=== PATIENT | female | born 1980 | race Caucasian/White ===

== ENCOUNTER 2016-11-03 15:50 | Emergency (ER) | payer OTHER ==
--- NOTE | 2016-11-03 17:54 | ED ---
General Adult HPI - General Chief complaint: ENT Stated complaint: feels like food is stuck in throat Time Seen by Provider: 11/03/16 17:43 Source: patient, RN notes reviewed Mode of arrival: ambulatory Limitations: no limitations - History of Present Illness Initial comments: Patient 35-year-old female who presents emergency room today with chief complaint of indigestion. She does admit that over the last month she's been having increased symptoms. She states last few days seems worse. She states she's tried [id number] omeprazole. She states she states is different medicines to help. She states feels like there is stuck in her esophagus. States feels like she has difficult time swallowing at times with moving up and down. Patient states that she constantly needs to be drinking something to help with the symptoms. Patient denies any other complaints or symptoms currently. She denies any difficulty swallowing or breathing. Patient denies any recent fever, chills, shortness of breath, chest pain, back pain, abdominal pain, nausea or vomiting, numbness or tingling, dysuria or hematuria, constipation or diarrhea, headaches or visual changes, or any other complaints. - Related Data Home Medications Medication Instructions Recorded Confirmed ALPRAZolam [Xanax] 2 mg PO TID 07/27/15 08/13/15 HYDROcodone/APAP 10-325MG [[place] 1 tab PO DIRECTED PRN 08/06/15 08/13/15 10-325] Gabapentin 800 mg PO QID 11/03/16 11/03/16 Previous Rx's Medication Instructions Recorded Sucralfate [Carafate] 1 gm PO ACHS #20 tablet 11/03/16 Allergies Allergy/AdvReac Type Severity Reaction Status Date / Time Sulfa (Sulfonamide Allergy Anaphylaxis Verified 11/03/16 18:27 Antibiotics) codeine AdvReac Nausea & Verified 11/03/16 18:27 Vomiting tramadol AdvReac Nausea & Verified 11/03/16 18:27 Vomiting Review of Systems ROS Statement: Those systems with pertinent positive or pertinent negative responses have been documented in the HPI. ROS Other: All systems not noted in ROS Statement are negative. Past Medical History Past Medical History: No Reported History Additional Past Medical History / Comment(s): chronic back pain History of Any Multi-Drug Resistant Organisms: None Reported Past Surgical History: Section, Orthopedic Surgery Additional Past Surgical History / Comment(s): OVARIAN CYST SURGERY, ARTHROSCOPIC SURGERY OF THE LEFT KNEE X3 Past Psychological History: No Psychological Hx Reported Smoking Status: Current every day smoker Past Alcohol Use History: None Reported Past Drug Use History: None Reported General Exam - General Exam Comments Initial Comments: General: The patient is awake and alert, in no distress, and does not appear acutely ill. Eye: Pupils are equal, round and reactive to light, extra-ocular movements are intact. No nystagmus. There is normal conjunctiva bilaterally. No signs of icterus. Ears, nose, mouth and throat: There are moist mucous membranes and no oral lesions. Neck: The neck is supple, there is no tenderness or JVD. Cardiovascular: There is a regular rate and rhythm. No murmur, rub or gallop is appreciated. Respiratory: Lungs are clear to auscultation, respirations are non-labored, breath sounds are equal. No wheezes, stridor, rales, or rhonchi. Gastrointestinal: Soft, non-distended, non-tender abdomen without masses or organomegaly noted. There is no rebound or guarding present. No CVA tenderness. Bowel sounds are unremarkable. Musculoskeletal: Normal ROM, no tenderness. Strength 5/5. Sensation intact. Pulses equal bilaterally 2+. Neurological: A&O x 3. CN II-XII intact, There are no obvious motor or sensory deficits. Coordination appears grossly intact. Speech is normal. Skin: Skin is warm and dry and no rashes or lesions are noted. Psychiatric: Cooperative, appropriate mood & affect, normal judgment. Limitations: no limitations Course Vital Signs 11/03/16 15:55 Temperature 97.6 F Pulse Rate 89 Respiratory 16 Rate Blood Pressure 150/76 O2 Sat by Pulse 100 Oximetry Medical Decision Making - Medical Decision Making Patient reexamined at this time shows no signs of distress. Has been able to keep down by mouth fluids here in the emergency room. She admits that she had cocktail did not help much with her symptoms. Patient's x-ray reviewed and are unremarkable. Patient is advised follow-up with GI for further evaluation be started on Carafate. Patient requesting prescription refills for her [place] and Xanax. Advised that she needs follow-up family doctor for these. Advised return if there is any difficulty swallowing or any other concerns. Patient states understanding and agreement. Disposition Clinical Impression: Dyspepsia Disposition: HOME SELF-CARE Condition: Good Instructions: Indigestion (ED) Additional Instructions: Please follow-up GI doctor over the next 2 days. Please use medication as described. Please follow-up family doctor for prescriptions of [place] and Xanax as discussed. Please return to emergency room for any other concerns. Prescriptions: Sucralfate [Carafate] 1 gm PO ACHS #20 tablet Referrals: None,Stated [Primary Care Provider] - 1-2 days Ja Alejandre MD [STAFF PHYSICIAN] - 1-2 days Time of Disposition: 18:32
--- NOTE | 2016-11-03 18:05 | XR ---
EXAMINATION TYPE: XR chest 2V DATE OF EXAM ORDERED: 11/03/2016 6:00 PM HISTORY: Dyspepsia. REFERENCE: None. FINDINGS: The lungs are clear. Pleural spaces are clear. Heart size is normal. IMPRESSION: NORMAL CHEST.
[2016-11-03] MEDS ORDERED: MAG HYDROX/AL HYDROX/SIMETH 30 ML, HYOSCYAMINE ELIXIR 10 ML, CIMETIDINE HCL 300 MG, LID... PO STA ×4 (18:09)
[2016-11-03 18:55] VITALS: BP 123/59; PULSE 76; RESP 18; TEMP 98
== END 2016-11-03 18:55 | disposition home or self-care (01) ==
LOC: EC 15:50
DX: R10.13 Epigastric pain (principal); F17.200 Nicotine dependence, unspecified, uncomplicated; Z79.899 Other long term (current) drug therapy; Z88.2 Allergy status to sulfonamides; Z88.5 Allergy status to narcotic agent; Z88.6 Allergy status to analgesic agent
CPT/HCPCS: 71020; 99283

== ENCOUNTER 2017-05-23 13:45 | Emergency (ER) | payer OTHER ==
[2017-05-23 14:03] VITALS: BP 141/74; PULSE 74; RESP 18; TEMP 97.9
--- NOTE | 2017-05-23 14:21 | ED ---
General Adult HPI - General Chief complaint: Dental/Oral Stated complaint: Dental Pain Time Seen by Provider: 05/23/17 13:58 Source: patient, RN notes reviewed Mode of arrival: ambulatory Limitations: no limitations - History of Present Illness Initial comments: Patient 36-year-old female who presents emergency room today with chief complaint of increased dental pain is 8 over both left upper and lower sides. Does not that she is on antibiotics of amoxicillin for the last 6 days that there is an abscess or drainage. Patient denies symptoms. States she does have a follow-up with the dentist in 4 days. Patient denies any recent fever, chills, shortness of breath, chest pain, back pain, abdominal pain, nausea or vomiting, numbness or tingling, dysuria or hematuria, constipation or diarrhea, headaches or visual changes, or any other complaints. - Related Data Home Medications Medication Instructions Recorded Confirmed ALPRAZolam [Xanax] 2 mg PO TID 07/27/15 11/03/16 HYDROcodone/APAP 10-325MG [[place] 1 tab PO QID 08/06/15 11/03/16 10-325] Gabapentin 800 mg PO QID 11/03/16 11/03/16 Previous Rx's Medication Instructions Recorded Sucralfate [Carafate] 1 gm PO ACHS #20 tablet 11/03/16 Clindamycin HCl [Cleocin] 300 mg PO Q6HR 10 Days cap 05/23/17 Hydrocodone/Acetaminophen [[place] 1 each PO Q6HR PRN #10 tab 05/23/17 5-325] Allergies Allergy/AdvReac Type Severity Reaction Status Date / Time Sulfa (Sulfonamide Allergy Anaphylaxis Verified 05/23/17 13:59 Antibiotics) codeine AdvReac Nausea & Verified 05/23/17 13:59 Vomiting tramadol AdvReac Nausea & Verified 05/23/17 13:59 Vomiting Review of Systems ROS Statement: Those systems with pertinent positive or pertinent negative responses have been documented in the HPI. ROS Other: All systems not noted in ROS Statement are negative. Past Medical History Past Medical History: No Reported History Additional Past Medical History / Comment(s): chronic back pain History of Any Multi-Drug Resistant Organisms: None Reported Past Surgical History: Section, Orthopedic Surgery Additional Past Surgical History / Comment(s): OVARIAN CYST SURGERY, ARTHROSCOPIC SURGERY OF THE LEFT KNEE X3 Past Psychological History: Anxiety Smoking Status: Current every day smoker Past Alcohol Use History: Rare Past Drug Use History: None Reported General Exam - General Exam Comments Initial Comments: General: The patient is awake and alert, in no distress, and does not appear acutely ill. Eye: Pupils are equal, round and reactive to light, extra-ocular movements are intact. No nystagmus. There is normal conjunctiva bilaterally. No signs of icterus. Ears, nose, mouth and throat: There are moist mucous membranes and no oral lesions. Patient does have poor dental hygiene. Does have an abscess above tooth #14. Abscesses currently draining. Does have pain over the gumline of tooth #1918 as well. No sign of abscess in this area. Neck: The neck is supple, there is no tenderness or JVD. Cardiovascular: There is a regular rate and rhythm. No murmur, rub or gallop is appreciated. Respiratory: Lungs are clear to auscultation, respirations are non-labored, breath sounds are equal. No wheezes, stridor, rales, or rhonchi. Musculoskeletal: Normal ROM, no tenderness. Strength 5/5. Sensation intact. Pulses equal bilaterally 2+. Neurological: A&O x 3. CN II-XII intact, There are no obvious motor or sensory deficits. Coordination appears grossly intact. Speech is normal. Skin: Skin is warm and dry and no rashes or lesions are noted. Psychiatric: Cooperative, appropriate mood & affect, normal judgment. Limitations: no limitations Course Vital Signs 05/23/17 13:59 Temperature 97.9 F Pulse Rate 74 Respiratory 18 Rate Blood Pressure 141/74 O2 Sat by Pulse 98 Oximetry Medical Decision Making - Medical Decision Making Patient advised used teabag to the gumline for abscess. Advised salt water gargles or blistering. Will be also placed on any other antibiotic clindamycin to cover for infection. Given short prescription medication. Disposition Clinical Impression: Dental abscess Disposition: HOME SELF-CARE Condition: Good Instructions: Dental Abscess (ED) Additional Instructions: Please use medication as discussed. Please follow-up with dentist/family doctor in the next 2 days of symptoms have not improved. Please return to emergency room if the symptoms increase or worsen or for any other concerns. Prescriptions: Clindamycin HCl [Cleocin] 300 mg PO Q6HR 10 Days cap Hydrocodone/Acetaminophen [[place] 5-325] 1 each PO Q6HR PRN #10 tab PRN Reason: Pain Referrals: None,Stated [Primary Care Provider] - 1-2 days Time of Disposition: 14:20
== END 2017-05-23 14:37 | disposition home or self-care (01) ==
LOC: EC 13:45
DX: K04.7 Periapical abscess without sinus (principal); F41.9 Anxiety disorder, unspecified; F17.200 Nicotine dependence, unspecified, uncomplicated; Z88.2 Allergy status to sulfonamides; Z88.5 Allergy status to narcotic agent; Z88.6 Allergy status to analgesic agent; Z79.891 Long term (current) use of opiate analgesic; Z79.899 Other long term (current) drug therapy
CPT/HCPCS: 99282

== ENCOUNTER → 2019-04-09 | Outpatient (CLI) | payer BC, OTHER ==
--- NOTE | 2019-04-09 10:06 | MM ---
Reason for exam: screening (asymptomatic). Baseline mammogram. History: Took hormonal contraceptives beginning at age 15. Physical Findings: Nurse did not find any significant physical abnormalities on exam. MG 3D Screening Mammo W/Cad Bilateral CC and MLO view(s) were taken. The breast tissue is heterogeneously dense. This may lower the sensitivity of mammography. There are multiple round oval circumscribed bilateral masses, likely cyst however will be confirmed with ultrasound. These results were verbally communicated with the patient and result sheet given to the patient on 04/09/19. ASSESSMENT: Incomplete: need additional imaging evaluation, BI-RAD 0 RECOMMENDATION: Ultrasound of both breasts. (right whole breast, left upper outer quadrant)
--- NOTE | 2019-04-09 10:09 | USB ---
Reason for exam: additional evaluation requested from abnormal screening. History: Took hormonal contraceptives beginning at age 15. Physical Findings: Breast exam preformed at baseline screening. US Breast Workup Limited SARINA Right complete breast ultrasound includes all four quadrants, the retroareolar region and axilla. Finding demonstrates a 0.4 x 0.2 x 0.4cm cystic lesion at 4 o'clock, a 0.4 x 0.4 x 0.6cm cystic cluster at 7 o'clock and a 0.6 x 0.3 x 0.5cm cystic lesion at 8 o'clock. Correlates with mammogram. Left limited breast ultrasound including focal area of concern, retroareolar and axilla demonstrates a 0.5 x 0.4 x 0.4cm lesion too small to characterize at 12 o'clock, likely deep cyst in dense tissue, 6 month follow up recommended, a 0.5 x 0.5 x 0.5cm cystic lesion at 2 o'clock and a 0.5 x 0.3 x 0.5cm cystic cluster at 2 o'clock. These results were verbally communicated with the patient and result sheet given to the patient on 04/09/19. ASSESSMENT: Probably benign, BI-RAD 3 RECOMMENDATION: Ultrasound of the left breast in 6 months. (at 12 o'clock)
== END ==
LOC: RADMAMWWP 07:55
PROVIDERS: ATTEND Obstetrics & Gynecology
DX: Z12.31 Encounter for screening mammogram for malignant neoplasm of breast (principal); R92.8 Other abnormal and inconclusive findings on diagnostic imaging of breast
CPT/HCPCS: 77063; 77067

== ENCOUNTER → 2019-10-12 | Outpatient (CLI) | payer OTHER ==
--- NOTE | 2019-10-12 11:50 | USB ---
Reason for exam: follow-up at short interval from prior study. History: Took hormonal contraceptives beginning at age 15. Physical Findings: Nurse Summary: Patient complains of intermittent pain breast lumps bilateral more on left prior to menstrual cycles, right 9 o'clock 1cm lump, left 12 o'clock/2 o'clock 1cm lumps (nurse mj). US Breast Limited BILAT Right limited breast ultrasound including focal area of concern, retroareolar and axilla demonstrates a 0.8 x 0.6 x 0.4cm oval, cystic lesion at 9 o'clock prior at 8 o'clock measured 0.6 x 0.3 x 0.5cm, a 0.6 x 0.6 x 0.4cm oval, cystic lesion at 9 o'clock BB and a 1.4 x 2.0 x 0.5cm lymph node at the axilla. Left limited breast ultrasound including focal area of concern, retroareolar and axilla demonstrates a 0.4 x 0.3 x 0.2cm oval, complicated, cystic lesion at 2 o'clock, a 0.4 x 0.6 x 0.2cm oval, cystic lesion at 2 o'clock, a 0.3 x 0.4 x 0.4cm oval, taller than wide, cystic lesion at 2 o'clock and a 2.9 x 1.5 x 0.5cm left axilla node. These results were verbally communicated with the patient and result sheet given to the patient on 10/12/19. ASSESSMENT: Benign, BI-RAD 2 RECOMMENDATION: Return to routine screening mammogram schedule for both breasts. Back on schedule for April 2020.
== END | disposition home or self-care (01) ==
LOC: RADUSWWP 09:56
PROVIDERS: ATTEND Internal Medicine
DX: R92.8 Other abnormal and inconclusive findings on diagnostic imaging of breast (principal)

== ENCOUNTER → 2020-06-07 | Outpatient (CLI) | payer OTHER ==
--- NOTE | 2020-06-08 11:15 | MM ---
Reason for exam: screening (asymptomatic). Last mammogram was performed 1 year and 2 months ago. History: Took hormonal contraceptives beginning at age 15. Physical Findings: A clinical breast exam by your physician is recommended on an annual basis and results should be correlated with mammographic findings. MG 3D Screening Mammo W/Cad Bilateral CC and MLO view(s) were taken. Prior study comparison: April 09, 2019, bilateral MG 3d screening mammo w/cad. The breast tissue is heterogeneously dense. This may lower the sensitivity of mammography. No significant changes when compared with prior studies. ASSESSMENT: Benign, BI-RAD 2 RECOMMENDATION: Routine screening mammogram of both breasts in 1 year.
== END | disposition home or self-care (01) ==
LOC: RADMAMWWP 07:20
PROVIDERS: ATTEND Obstetrics & Gynecology
DX: Z12.31 Encounter for screening mammogram for malignant neoplasm of breast (principal)
CPT/HCPCS: 77063; 77067

== ENCOUNTER 2021-02-19 09:32 | Emergency (ER) | payer BC, OTHER ==
[2021-02-19 09:40] VITALS: BP 122/75; PULSE 72; RESP 18; TEMP 98.3
--- NOTE | 2021-02-19 10:33 | XR ---
EXAMINATION TYPE: XR elbow complete RT DATE OF EXAM: 02/19/2021 COMPARISON: None HISTORY: Pain and swelling TECHNIQUE: Three-view right elbow FINDINGS: Radius aligns normally with the humerus. No acute fractures or dislocations are evident. An terior fat pad is normal. No elevation of posterior fat pad is evident. Overlying soft tissues appear normal. Follow up exams can be performed 7-10 days for continued pain IMPRESSION: 1. Normal three-view right elbow.
--- NOTE | 2021-02-19 10:43 | ED ---
Extremity Problem HPI - General Chief complaint: Extremity Problem,Nontraumatic Stated complaint: Rt Elbow Swelling Time Seen by Provider: 02/19/21 09:59 Source: patient, RN notes reviewed Mode of arrival: ambulatory Limitations: no limitations - History of Present Illness Initial comments: This a 40-year-old female presents with sore to when her right elbow redness. Patient states that she had an injection of cortisone and lidocaine 56 days ago. Patient was seen by the second orthopedic physician who did this. Patient is performed at [facility]. She notices itchy last 24 hours noticed lower redness that worsened today with some swelling she has no pain with range of motion of her right elbow she states that she did not plan to the area she has been scratching that she is unsure if she may have been bit by a mosquito. Patient denies fevers chills no paresthesias no other complaints. - Related Data Home Medications Medication Instructions Recorded Confirmed ALPRAZolam [Xanax] 2 mg PO TID 07/27/15 11/03/16 HYDROcodone/APAP 10-325MG [[place] 1 tab PO QID 08/06/15 11/03/16 10-325] Gabapentin 800 mg PO QID 11/03/16 11/03/16 Previous Rx's Medication Instructions Recorded Sucralfate [Carafate] 1 gm PO ACHS #20 tablet 11/03/16 Hydrocodone/Acetaminophen [[place] 1 each PO Q6HR PRN #10 tab 05/23/17 5-325] clindamycin HCL [Cleocin] 300 mg PO Q6HR 10 Days cap 05/23/17 Cephalexin [Keflex] 500 mg PO Q6HR #40 cap 02/19/21 Allergies Allergy/AdvReac Type Severity Reaction Status Date / Time Sulfa (Sulfonamide Allergy Anaphylaxis Verified 02/19/21 09:40 Antibiotics) codeine AdvReac Nausea & Verified 02/19/21 09:40 Vomiting tramadol AdvReac Nausea & Verified 02/19/21 09:40 Vomiting Review of Systems ROS Statement: Those systems with pertinent positive or pertinent negative responses have been documented in the HPI. ROS Other: All systems not noted in ROS Statement are negative. Past Medical History Past Medical History: No Reported History Additional Past Medical History / Comment(s): chronic back pain History of Any Multi-Drug Resistant Organisms: None Reported Past Surgical History: Section, Orthopedic Surgery Additional Past Surgical History / Comment(s): OVARIAN CYST SURGERY, ARTHROSCOPIC SURGERY OF THE LEFT KNEE X3 Past Psychological History: Anxiety Smoking Status: Never smoker Past Alcohol Use History: Rare Past Drug Use History: None Reported General Exam Limitations: no limitations General appearance: alert, in no apparent distress Head exam: Present: atraumatic, normocephalic, normal inspection Neck exam: Present: normal inspection, full ROM. Absent: tenderness, meningismus, lymphadenopathy Respiratory exam: Present: normal lung sounds bilaterally. Absent: respiratory distress, wheezes, rales, rhonchi, stridor Cardiovascular Exam: Present: regular rate, normal rhythm, normal heart sounds. Absent: systolic murmur, diastolic murmur, rubs, gallop, clicks Extremities exam: Present: other (Right elbow there is full range of motion, no pain with range of motion passive or active, nontender there is mild erythema which is blotchy in nature, she does have some excoriations. Patient's neurovascular intact.) Course Vital Signs 02/19/21 09:37 Temperature 98.3 F Pulse Rate 72 Respiratory 18 Rate Blood Pressure 122/75 O2 Sat by Pulse 100 Oximetry Medical Decision Making - Medical Decision Making X-rays unremarkable. Patient has no pain with range of motion there is no concern for septic joint at this time. Patient denies she was started on antibiotics for possible cellulitis. Patient advised to take antihistamines Juan from scratching the area she'll follow-up with orthopedics tomorrow return for any worsening changes symptoms. Disposition Clinical Impression: Right arm cellulitis Disposition: HOME SELF-CARE Condition: Stable Instructions (If sedation given, give patient instructions): Cellulitis (ED) Additional Instructions: Please return to the Emergency Department if symptoms worsen or any other concerns. Prescriptions: Cephalexin [Keflex] 500 mg PO Q6HR #40 cap Is patient prescribed a controlled substance at d/c from ED?: No Referrals: Dwight Albarran DO [Primary Care Provider] - 1-2 days Time of Disposition: 10:41
== END 2021-02-19 10:50 | disposition home or self-care (01) ==
LOC: EC 09:32
DX: L03.113 Cellulitis of right upper limb (principal); F41.9 Anxiety disorder, unspecified; G89.29 Other chronic pain; Z79.891 Long term (current) use of opiate analgesic; Z79.899 Other long term (current) drug therapy; Z88.2 Allergy status to sulfonamides; Z88.5 Allergy status to narcotic agent; Z88.8 Allergy status to other drugs, medicaments and biological substances
CPT/HCPCS: 99283

== ENCOUNTER → 2021-08-30 | Outpatient (CLI) | payer OTHER ==
--- NOTE | 2021-09-01 09:25 | MM ---
Reason for exam: screening (asymptomatic). Last mammogram was performed 1 year and 3 months ago. History: Took hormonal contraceptives beginning at age 15. Physical Findings: A clinical breast exam by your physician is recommended on an annual basis and results should be correlated with mammographic findings. MG 3D Screening Mammo W/Cad Bilateral CC and MLO view(s) were taken. Prior study comparison: June 07, 2020, bilateral MG 3d screening mammo w/cad. April 09, 2019, bilateral MG 3d screening mammo w/cad. Focal asymmetry right CC view. This finding is changed when compared with previous exams. ASSESSMENT: Incomplete: need additional imaging evaluation, BI-RAD 0 RECOMMENDATION: Special view mammogram and ultrasound of the right breast. Manage on a clinical basis with regard to right side pain, consider ultrasound for pain. [facility] will attempt to contact patient to return for supplemental views and ultrasound.
== END | disposition home or self-care (01) ==
LOC: RADMAMWWP 16:12
PROVIDERS: ATTEND Obstetrics & Gynecology
DX: Z12.31 Encounter for screening mammogram for malignant neoplasm of breast (principal)
CPT/HCPCS: 77063; 77067

== ENCOUNTER → 2021-09-05 | Outpatient (CLI) | payer OTHER ==
--- NOTE | 2021-09-05 09:09 | MM ---
Reason for exam: additional evaluation requested from abnormal screening. Last mammogram was performed less than 1 month ago. History: Took hormonal contraceptives beginning at age 15. Physical Findings: Nurse did not find any significant physical abnormalities on exam. MG 3D Work Up W/Cad RT Spot compression CC and LM view(s) were taken of the right breast. Prior study comparison: August 30, 2021, bilateral MG 3d screening mammo w/cad. June 07, 2020, bilateral MG 3d screening mammo w/cad. The breast tissue is heterogeneously dense. This may lower the sensitivity of mammography. There is no discrete abnormality. These results were verbally communicated with the patient and result sheet given to the patient on 09/05/21. ASSESSMENT: Incomplete: need additional imaging evaluation, BI-RAD 0 RECOMMENDATION: Ultrasound of the right breast. (focal pain and background dense tissue) MTDD
--- NOTE | 2021-09-05 09:11 | USB ---
Reason for exam: additional evaluation requested from abnormal screening. History: Took hormonal contraceptives beginning at age 15. US Breast Workup Limited RT Right limited breast ultrasound including focal area of concern, retroareolar and axilla demonstrates no cystic or solid lesion seen. These results were verbally communicated with the patient and result sheet given to the patient on 09/05/21. ASSESSMENT: Negative, BI-RAD 1 RECOMMENDATION: Clinical management of both breasts. Manage on a clinical basis with regard to right breast pain.
== END | disposition home or self-care (01) ==
LOC: RADMAMWWP 07:39
PROVIDERS: ATTEND Obstetrics & Gynecology
DX: R92.8 Other abnormal and inconclusive findings on diagnostic imaging of breast (principal)
CPT/HCPCS: 77065; 76642; G0279; 77061

== ENCOUNTER → 2021-11-24 | Outpatient (CLI) | payer BC, OTHER ==
[2021-11-24 15:13] VITALS: BP 108/65; PULSE 64; RESP 16; TEMP 98
--- NOTE | 2021-11-24 15:42 | P.GSHP ---
History of Present Illness H&P Date: 11/24/21 Chief Complaint: lump right breast Natalia is a 40 year old white female seen in consultatin for Dr. Albarran regarding a painful nodularity in her right breast. She had a bilateral mammogram on 08-30-21 which showed some asymmetry in the right breast leading on 09-05-21 to a right diagnostic mammogram and ultrasound. These did not show any lesions of concern in the breast. This was Benign BIRAD 1. The nodularity has been present for several years. She had an ablation done two years, but she still notices the pain in the lateral aspect of her breast. She has not had any procedures done on her breast. No history of any trauma or infection of the breast. Caffeine: coffee 1/day nicotine: none chocolate: rare BCP: none; not since 2007 Family History: paternal grandmother: stomach cancer paternal grandfather: prostate cancer maternal grandmother: cancer? type Hormonal History: menarche: 11 , breast fed: no, age at : 22 ablation at 1919 at about 38 hormones: none Surgical History: right elbow multiple surgeries for ovarian cyst left knee Medical History: none Social History: nicotine: stopped 3 years ago; 1/2 PPD since alcohol: none drugs: stopped 3 years ago - Constitutional Constitutional: Denies chills, Denies fever - EENT Eyes: denies blurred vision, denies pain Ears: bilateral: tinnitus, deny: decreased hearing Ears, nose, mouth and throat: Denies headache, Denies sore throat - Breasts Breasts: bilateral: as per HPI - Cardiovascular Cardiovascular: Denies chest pain, Denies shortness of breath - Respiratory Respiratory: Denies cough, Denies 7 - Gastrointestinal Gastrointestinal: Denies abdominal pain, Denies diarrhea, Denies nausea, Denies vomiting - Genitourinary (Female) Genitourinary: Denies dysuria, Denies hematuria - Menstruation Comment: no periods since ablation - Musculoskeletal Musculoskeletal: Denies myalgias - Integumentary Integumentary: Denies pruritus, Denies rash - Neurological Neurological: Denies numbness, Denies weakness - Psychiatric Psychiatric: Denies anxiety, Denies depression - Endocrine Endocrine: Reports fatigue, Denies weight change - Hematologic/Lymphatic Comment: none - Allergic/Immunologic Allergic/Immunologic: Reports as per HPI Past Medical History Past Medical History: No Reported History Additional Past Medical History / Comment(s): chronic back pain History of Any Multi-Drug Resistant Organisms: None Reported Past Surgical History: Section, Orthopedic Surgery Additional Past Surgical History / Comment(s): OVARIAN CYST SURGERY, ARTHROSCOPIC SURGERY OF THE LEFT KNEE X3, RIGHT ELBOW Past Psychological History: Anxiety, Depression Smoking Status: Former smoker Past Alcohol Use History: Rare Past Drug Use History: Marijuana, Methamphetamine, Opiates Medications and Allergies Home Medications Medication Instructions Recorded Confirmed Type 5Hydroxytryptophan(Oxitriptan) 200 mg PO DAILY 11/24/21 11/24/21 History [5-Htp] Cyanocobalamin (Vitamin B-12) 5,000 mcg PO DAILY 11/24/21 11/24/21 History [Vitamin B12] Ergocalciferol [Vitamin D2 (1250 1,250 mcg PO DAILY 11/24/21 11/24/21 History Mcg = 39031 Iu)] Lisdexamfetamine Dimesylate 20 mg PO DAILY 11/24/21 11/24/21 History [Vyvanse] Allergies Allergy/AdvReac Type Severity Reaction Status Date / Time Sulfa (Sulfonamide Allergy Anaphylaxis Verified 11/24/21 15:04 Antibiotics) codeine AdvReac Nausea & Verified 11/24/21 15:04 Vomiting tramadol AdvReac Nausea & Verified 11/24/21 15:04 Vomiting Surgical - Exam Vital Signs Temp Pulse Resp BP Pulse Ox 98 F 64 16 108/65 99 11/24/21 15:08 11/24/21 15:08 11/24/21 15:08 11/24/21 15:08 11/24/21 15:08 BMI: 22.9 - General no distress - Eyes normal ocular movement - Neck trachea midline - Respiratory normal respiratory effort, clear to auscultation - Cardiovascular Rhythm: regular Heart Sounds: normal: S1, S2 - Integumentary normal turgor - Neurologic no disoriented, no combative - Musculoskeletal normal gait - Psychiatric oriented to time, oriented to person, oriented to place, speech is normal, memory intact Breast Exam: BRA: medium sports bra inspection: bilateral grade 2 ptosis palpation: right breast: Positional examination no dominant masses or nodules of concern, particularly attention to the lateral aspect of the right breast reveals fibrocystic change but nothing which would warrant interventional biopsy at this time Right axilla: No adenopathy of concern Left breast: Multi-positional exam fibrocystic changes no dominant masses or nodules of concern Left axilla: No adenopathy of concern Results Mammogram and ultrasound results reviewed Assessment and Plan Assessment: Impression: Fibrocystic breast changes Tenderness lateral aspect of right breast Nothing which were more interventional biopsy at this time Plan: Bilateral mammogram in 1 year with physician exam at that time Patient to follow up sooner if any questions or concerns Cc: Dr. Albarran
== END ==
LOC: WWCWWP 14:39
PROVIDERS: ATTEND Surgery
DX: N60.11 Diffuse cystic mastopathy of right breast (principal); N60.12 Diffuse cystic mastopathy of left breast; F41.9 Anxiety disorder, unspecified; F32.A Depression, unspecified; Z87.891 Personal history of nicotine dependence; Z88.2 Allergy status to sulfonamides; Z88.5 Allergy status to narcotic agent; Z88.8 Allergy status to other drugs, medicaments and biological substances

== ENCOUNTER → 2022-10-11 | Outpatient (CLI) | payer BC, OTHER ==
--- NOTE | 2022-10-23 01:56 | EST ---
EXERCISE STRESS The patient was monitored between the and 17 October 2022. The rhythm strip revealed a sinus mechanism with episode of sinus tachycardia. No atrial fibrillation was noted. No symptoms were reported. No pauses were noted. ANYI / IJN: [id number] /
== END | disposition home or self-care (01) ==
LOC: RADECHMAIN 12:34
PROVIDERS: ATTEND Family Medicine
DX: R00.2 Palpitations (principal)
CPT/HCPCS: 93270

== ENCOUNTER → 2022-11-29 | Outpatient (CLI) | payer BC, OTHER ==
--- NOTE | 2022-11-30 11:53 | CA ---
Exercise Stress Test Report Name: Natalia Morales Exam Date: 11/29/2022 09:20 Exam Location: [place] Stress Ht (in): 69 Wt (lb): 155 BSA: 1.85 Ordering Phys: Dwight Albarran DO Referring Phys: Merari Parekh Technologist: Martin Briseno Age: 41 Gender: F : 1980 Procedure CPT: Indications: R00.0 TACHYCARDIA, UNSPECIFIED ICD-10 Codes: Patient History: PALPITATIONS, PRIOR SMOKER Medications: VITAMIN D, VIT B12, ADDERALL XR Meds past 24 hrs: Pretest Chest Pain: STRESS TEST Catracho Protocol Exercise Duration (min:sec): 09:[address] Depressions (mm): Angina Score: Miranda Score: Resting HR (bpm): 102 Peak HR (bpm): 170 Resting BP (mmHg): 135 / 83 Peak BP (mmHg): 154 / 77 MPHR: 177 Target HR: 150 % MPHR: 96 METS: 10.3 Total Dose: Peak Dose: Atropine: Double Product: 71997 BP Response: Stress Termination: TARGET HR REACHED/MAX EXERTION Stress Symptoms: CHEST PAIN Stress Summary: ECG ANALYSIS Resting ECG: Stress ECG: CONCLUSIONS Excellent exercise tolerance Normal EKG in response to exercise Dr. Priyank Cordova MD (Electronically Signed) Final Date: 30 November 2022 11:52
== END | disposition home or self-care (01) ==
LOC: RADNMMAIN 08:51
PROVIDERS: ATTEND Family Medicine
DX: R00.0 Tachycardia, unspecified (principal); R00.2 Palpitations; Z87.891 Personal history of nicotine dependence
CPT/HCPCS: 93017

== ENCOUNTER → 2023-01-07 | Outpatient (CLI) | payer BC, OTHER ==
--- NOTE | 2023-01-07 11:02 | XR ---
EXAMINATION TYPE: XR elbow complete LT DATE OF EXAM: 01/07/2023 CLINICAL HISTORY: M25.522 LEFT ELBOW PAIN TECHNIQUE: Frontal, lateral and oblique images of the left elbow are obtained. COMPARISON: None FINDINGS: There is no acute fracture/dislocation evident in the left elbow. No abnormal fat pad sig ns are seen. The overlying soft tissue appears unremarkable. IMPRESSION: As above.
== END | disposition home or self-care (01) ==
LOC: RADXRMAIN 10:28
PROVIDERS: ATTEND Family Medicine
DX: M25.522 Pain in left elbow (principal)

== ENCOUNTER → 2023-10-31 | Outpatient (CLI) | payer BC, OTHER ==
[2023-10-31 19:46] LABS: Basophils # (A) 0.04 X 10*3/uL (0.00-0.10); Basophils % (A) 0.5 %; Eosinophils # (A) 0.12 X 10*3/uL (0.04-0.35); Eosinophils % (A) 1.5 %; HCT 39.1 % (37.2-46.3); HGB 12.7 g/dL (12.0-15.0); Lymphocytes # (A) 2.93 X 10*3/uL (0.90-5.00); Lymphocytes % (A) 35.7 %; MCH 28.4 pg (27.0-32.0); MCHC 32.5 g/dL (32.0-37.0); MCV 87.5 FL (80.0-97.0); Mean Platelet Volume 10.5 FL (9.5-12.2); Monocytes # (A) 0.63 X 10*3/uL (0.20-1.00); Monocytes % (A) 7.7 %; NRBC Per 100 WBC 0 X 10*3/uL (0.00-0.01); Neutrophils # (A) 4.46 X 10*3/uL (1.80-7.70); Neutrophils % (A) 54.4 %; Platelet Count 253 X 10*3/uL (140-440); RBC 4.47 X 10*6/uL (4.10-5.20); RDW 13.8 % (11.5-14.5)
[2023-10-31 21:24] LABS: Progesterone 0.2 ng/mL
[2023-10-31 21:34] LABS: % Iron Saturation 18.11 (12.00-45.00); ALT 26 U/L (8-44); AST 22 U/L (13-35); Albumin 4.3 g/dL (3.8-4.9); Albumin/Globulin Ratio 1.87 Ratio (1.60-3.17); Alkaline Phosphatase 56 U/L (41-126); BUN/Creat Ratio 23.67 Ratio (12.00-20.00); Blood Urea Nitrogen 14.2 mg/dL (9.0-27.0); Calcium 9.1 mg/dL (8.7-10.3); Chloride 102 mmol/L (96-109); Ferritin 68.6 ng/mL (10.0-291.0); Globulin 2.3 g/dL (1.6-3.3); Glucose 140 mg/dL (70-110); Iron 67 UG/DL (50-170); Potassium 4.6 mmol/L (3.5-5.5); Sodium 139 mmol/L (135-145); T4, Free (Free Thyroxine) 0.89 ng/dL (0.80-1.80); Total Bilirubin 0.4 mg/dL (0.3-1.2); Total Iron Binding Capacity 370 UG/DL (228-460); Total Protein 6.6 g/dL (6.2-8.2)
[2023-10-31 21:35] LABS: Follicle Stimulating Hormone 2.2 mIU/mL; Luteinizing Hormone 2.6 mIU/mL
== END | disposition home or self-care (01) ==
LOC: LABWHC1 14:44
PROVIDERS: ATTEND Family Medicine
DX: R53.83 Other fatigue (principal); Z78.0 Asymptomatic menopausal state
CPT/HCPCS: 36415; 80053; 82306; 82607; 82626; 82670; 82728; 83001; 83002; 83540; 83550; 84144; 84403; 84439; 84443; 84480; 85025